=== PATIENT | female | born 1930 | race Caucasian/White ===

== ENCOUNTER 2017-05-13 16:46 | Emergency (ER) | payer MEDICARE, MEDICAID ==
[~2017-05-13] VITALS: Ht 157.5 cm; Wt 86.2 kg
[~2017-05-13 16:46] MED LIST: AMIODARONE HCL100 MG ORAL; CAPTOPRIL25 M1 PO; CELEBREX200 MG ORAL; CIPROFLOXACIN500 M2 ORAL; CRESTOR40 MG ORAL; CYMBALTA60 MG ORAL; LEVOTHYROXINE75 MCG ORAL; METROGEL55 GM TP; MICARDIS HCT 81 EAC1 ORAL; MICARDIS HCT 81 EACH ORAL; NAMENDA10 MG ORAL; NEXIUM40 MG ORAL; NKM; NORCO 5-325 TA1 EACH ORAL; OMEGA 3 1,0001 EACH PO; OYSTER SHELL 51 EAC1 PO; PATADAY2.5 ML OP; QUETIAPINE FUMA50 MG ORAL; TELMISARTAN80 MG PO; TOVIAZ8 MG PO; TRAMADOL HCL50 MG ORAL; VOLTAREN100 G1 TP; XARELTO10 MG ORAL; ZOLPIDEM TARTRAT5 MG ORAL
[2017-05-13 17:12] VITALS: BP 136/109
--- NOTE | 2017-05-13 17:15 | Emergency Room Report ---
History of Present Illness General Chief Complaint: Multiple Trauma/Fall Source: Patient Present Illness HPI Patient presents with complaints of fall and pain to the right wrist and the right upper rib cage area Patient reports that she had a fall about 11:00 in the afternoon Denies any head injury denies any loss of consciousness denies any vomiting Denies any abdominal pain Pain to the right wrist is 6/10 worse with touch and movement Pain to the right mid axillary area as well with touch Patient describes a mechanical fall denies any lightheadedness and states that she tripped Allergies: Coded Allergies: No Known Allergies (Unverified , 02/07/14) Patient History Past Medical History: see triage record Pertinent Family History: none Now: No Reviewed Nursing Documentation: PMH: Agreed, PSxH: Agreed Nursing Documentation-PMH Hx Cardiac Problems: Yes - CAD Hx Hypertension: Yes Hx Diabetes: No Hx Cancer: No Hx Gastrointestinal Problems: Yes - Constipation Hx Neurological Problems: No Review of Systems All Other Systems: negative except mentioned in HPI Physical Exam Vital Signs Date Time Temp Pulse Resp B/P (MAP) Pulse Ox O2 Delivery O2 Flow Rate FiO2 05/13/17 16:56 98.8 61 18 157/70 95 Room Air Sp02 EP Interpretation: reviewed, normal General Appearance: well appearing, no apparent distress Head: normocephalic, atraumatic Eyes: bilateral eye PERRL, bilateral eye EOMI ENT: hearing grossly normal, normal pharynx, TMs + canals normal, uvula midline Neck: full range of motion, supple, no meningismus, no bony tend Respiratory: lungs clear, normal breath sounds, no rhonchi, no respiratory distress, no retraction, no accessory muscle use Cardiovascular #1: normal peripheral pulses, regular rate, rhythm, no edema, no gallop, no JVD, no murmur Gastrointestinal: normal bowel sounds, non tender, soft, no mass, no organomegaly, non-distended, no guarding, no hernia, no pulsatile mass, no rebound Genitourinary: no CVA tenderness Musculoskeletal: other - Tender and mild swelling to the dorsal mid wrist mild ecchymosis is noted, patient is neurovascularly intact however, tender - Mid right axillary mild tenderness on palpation, no ecchymosis Neurologic: oriented x3, responsive, twister tender III-XII nml as tested, motor strength/ tone normal, sensory intact Psychiatric: mood/affect normal Skin: other - as noted above Lymphatic: normal inspection, no adenopathy Procedures Splinting Splinting : Consent: Verbal Location: right forearm Pre-Made Type: velcro Splint: volar Pre-Proc Neuro Vasc Exam: normal Post-Proc Neuro Vasc Exam: normal Patient Tolerated: Well Complications: None Medical Decision Making Diagnostic Impression: Primary Impression: Wrist fracture, right Additional Impression: Rib fractures ER Course Given the patient's history examined the presentation imaging studies were initiated Patient is appropriately oriented and denies any other symptoms such as lightheadedness or other pathology prior to the fall and reports a purely mechanical fall Patient remains hemodynamically stable and further blood work was not initiated Patient's wrist x-ray does show fractures as noted above CT chest also reveals several levels of fracture no obvious displacement Patient has no shortening signs of ecchymosis or bruising at this time, respirations are appropriate and not labored There is no signs of any flail chest And after further observation patient's appropriate for close outpatient followup I did contact the patient's son, spoke to his who is a registered nurse and she will have close outpatient followup for the patient Other X-Ray Diagnostic Results Other X-Ray Diagnostic Results : X-Ray ordered: right wrist # of Views/Limited Vs Complete: 3 View Indication: Pain EP Interpretation: Yes Interpretation: other - Distal impacted radial fracture, mild soft tissue swelling, ulnar fracture, no foreign body Impression: Other - Acute impacted distal radial, ulnar fracture Electronically Signed by: Vance Link DO CT/MRI/US Diagnostic Results CT/MRI/US Diagnostic Results : Impression CT chest: Right-sided nondisplaced rib 4-8 fracture. Refer to report for full finalized report Last Vital Signs Date Time Temp Pulse Resp B/P (MAP) Pulse Ox O2 Delivery O2 Flow Rate FiO2 05/13/17 16:56 98.8 61 18 157/70 95 Room Air Status: improved Disposition: HOME, SELF-CARE Condition: Improved Scripts Ibuprofen* (MOTRIN*) 600 Mg Tablet 600 MG ORAL Q8H Y for For Pain, #20 TAB 0 Refills Prov: VANCE LINK D.O. 05/13/17 Additional Instructions: Patient is provided with the discharge instructions notified to follow up with primary doctor in the next 2-3 days otherwise return to the er with any worsening symptoms. Please note that this report is being documented using DRAGON technology. This can lead to erroneous entry secondary to incorrect interpretation by the dictating instrument. VANCE LINK D.O. May 13, 2017 17:15
[2017-05-13 18:58] VITALS: BP 125/85
[2017-05-13] MEDS ORDERED: IBUPROFEN600 MG ORAL (18:59)
[2017-05-13 19:13] VITALS: BP 125/85
--- NOTE | 2017-05-14 09:53 | Diagnostic Imaging Report ---
Indication: Trauma with pain Technique: XRAY WRIST MIN 3V RIGHT Comparison: None. Findings: There is a comminuted fracture of the distal radius extending into the radiocarpal joint. Soft tissue swelling is present. The bones are osteopenic. Impression: Osteopenia. Comminuted fracture the distal radius with intra-articular extent.
--- NOTE | 2017-05-14 11:33 | Diagnostic Imaging Report ---
Indication: Trauma with chest pain Technique: CT scan of the chest was performed without intravenous contrast material. Continuous helical scanning was obtained with displayed 5 mm sections in axial and coronal planes. Dose: Total Dose Length Product - DLP [address] Dose Index - CTDIvol(s) 34.16 mGy. Comparison: 02/07/2014 Findings: Pacemaker wires are seen in the heart. There is a prosthetic aortic valve. The heart is normal in size. There is no mediastinal adenopathy or hilar adenopathy. A small linear density is noted in the right upper lobe laterally. There is dependent atelectasis in the right base. Some scarring is also noted in the right lower lobe laterally. Linear density is also noted in the lingula on the left. Fracture of the right third rib is noted. Views of the right fourth, fifth, sixth, seventh, and eighth ribs are noted ribs are noted. These appear incomplete. There are nondisplaced. The bones are osteopenic. Degenerative changes are noted in the thoracic spine. Impression: Intervening placement of prosthetic aortic valve. Intervening placement of pacemaker. Nondisplaced fractures of multiple right ribs. No pneumothorax. Scarring in the right lateral lung base. Atelectasis the right base. Atelectasis or scarring in the lingula. Scarring or atelectasis in the right upper lobe. The CT scanner at [facility] is accredited by the [employer] and the scans are performed using protocols designed to limit radiation exposure to as low as reasonably achievable to attain images of sufficient resolution adequate for diagnostic evaluation.
== END 2017-05-13 19:13 | disposition home or self-care (01) ==
LOC: EMR 17:05
DX: S52.571A Other intraarticular fracture of lower end of right radius, initial encounter for closed fracture (principal); S22.41XA Multiple fractures of ribs, right side, initial encounter for closed fracture; W19.XXXA Unspecified fall, initial encounter; Y92.89 Other specified places as the place of occurrence of the external cause; I10 Essential (primary) hypertension; I25.10 Atherosclerotic heart disease of native coronary artery without angina pectoris
CPT/HCPCS: 29125; 71250; 99284

== ENCOUNTER 2017-07-03 14:15 | Outpatient (RCR) | payer MEDICARE, MEDICAID ==
[~2017-07-03 14:15] MED LIST changes: +IBUPROFEN600 MG ORAL
== END 2017-07-04 | disposition home or self-care (01) ==
LOC: PTY 14:15
PROVIDERS: ATTEND Orthopaedic Surgery
DX: S62.101A Fracture of unspecified carpal bone, right wrist, initial encounter for closed fracture (principal)
CPT/HCPCS: 97140; 97162; G8984; G8985

== ENCOUNTER 2017-07-24 06:57 | Emergency (ER) | payer MEDICARE, MEDICAID ==
[~2017-07-24] VITALS: Ht 167.6 cm; Wt 99.8 kg
--- NOTE | 2017-07-24 07:24 | Emergency Room Report ---
History of Present Illness General Chief Complaint: Pain Source: Patient Present Illness HPI Patient is a 86-year-old female presented after a fall. Patient reportedly had fallen last night. The patient stated that she had pain to the right side of her chest as well as to her left wrist. injury occurred last night. The patient denies loss of consciousness. She denies any headache or neck pain. She denies any back pain. She reports having pain to the right side of her chest. Allergies: Coded Allergies: No Known Allergies (Unverified , 02/07/14) Patient History Past Medical History: see triage record Last Menstrual Period: none Now: No : 1 Para: 1 Reviewed Nursing Documentation: PMH: Agreed, PSxH: Agreed Nursing Documentation-PMH Hx Cardiac Problems: Yes - CAD Hx Hypertension: Yes Hx Diabetes: No Hx Cancer: No Hx Gastrointestinal Problems: Yes - Constipation Hx Neurological Problems: No Review of Systems All Other Systems: negative except mentioned in HPI Physical Exam Vital Signs Date Time Temp Pulse Resp B/P (MAP) Pulse Ox O2 Delivery O2 Flow Rate FiO2 07/24/17 07:07 98.1 60 15 182/85 96 Room Air General Appearance: well appearing, no apparent distress Head: normocephalic, atraumatic ENT: hearing grossly normal, normal voice Neck: full range of motion, supple Respiratory: chest non-tender, lungs clear, normal breath sounds, no respiratory distress, speaking full sentences Cardiovascular #1: normal peripheral pulses, no edema Gastrointestinal: non tender, soft, no mass, no organomegaly Musculoskeletal: normal inspection, back normal, no calf tenderness, swelling - swelling to left wrist Neurologic: alert, oriented x3, normal gait Psychiatric: mood/affect normal Skin: no rash Medical Decision Making Diagnostic Impression: Primary Impression: Contusion, chest wall ER Course patient presented for fall. Differential diagnosis included was not limited to neck fracture, CVA, close head injury, syncopal episode, basilar ischemia. Because of complexity of patient's case imaging studies were ordered.CT imaging of the chest read by radiologist showed no evidence of acute fracture. Patient was noted to have prior rib fractures which pretty partially healed. A left wrist x-ray 3 views interpreted by radiology showed normal bony alignment without any fracture and degenerative changes are presentThe patient is advised to follow up with primary care doctor in 1-2 days. Patient is advised to return if any worsening condition or if any changes in status that are concerning. Last Vital Signs Date Time Temp Pulse Resp B/P (MAP) Pulse Ox O2 Delivery O2 Flow Rate FiO2 07/24/17 07:07 98.1 60 15 182/85 96 Room Air Status: improved Disposition: HOME, SELF-CARE Condition: Stable Scripts Acetaminophen* (TYLENOL EXTRA STRENGTH*) 500 Mg Tablet 500 MG ORAL Q6H Y for Mild Pain/Temp > 100.5, #30 TAB 0 Refills Prov: Óscar Celestin 07/24/17 Óscar Celestin Jul 24, 2017 07:24
[2017-07-24] MEDS ORDERED: Acetaminophen 500mg (ES) tab ORAL ONE (07:30)
--- NOTE | 2017-07-24 08:38 | Diagnostic Imaging Report ---
Clinical Indication: PAIN STATUS post fall, pain to the right side of the chest Technique: Spiral acquisitions obtained through the chest. No IV contrast utilized, reason not stated. Multiplanar reconstructions generated. Total dose length product 1096 mGycm. CTDIvol(s) 27 mGy. Dose reduction achieved using automated exposure control Comparison: 05/13/2017 Findings:Lungs demonstrate some basilar atelectasis and/or scarring as well as the posterior dependent atelectatic changes. Some scarring is seen in the inferior lingula, unchanged. The lungs and pleural spaces are otherwise clear and unchanged. Multiple right rib fractures are again demonstrated, now demonstrating considerable callus formation. No new fractures are demonstrated. No evidence of significant soft tissue contusion. There are degenerative changes of the thoracic spine. Again demonstrated is a percutaneous aortic valve prosthesis. Again demonstrated are pacemaker wires. Normal heart size. No pericardial effusion. No mediastinal or hilar mass or adenopathy. No axillary or chest wall mass or adenopathy. 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 Bilateral renal cysts are again demonstrated. A hyperdense subcentimeter low-attenuation lesion in the upper pole is too small to characterize, likely a hyperdense cyst. There is an accessory splenule. Impression: Previously noted right rib fractures now demonstrated to be healing with callus formation. No acute bony trauma demonstrated. Pulmonary basilar and lingular atelectasis and scarring, unchanged from 05/13/2017. No acute pulmonary process Too small to characterize left upper pole renal lesion, likely a hyperdense proteinaceous cyst. No further followup necessary Other findings as noted, including degenerative spondylosis, aortic valve prosthesis, pacemaker, duodenal diverticulum, renal cysts, accessory splenule The CT scanner at [facility] is accredited by the [employer] and the scans are performed using protocols designed to limit radiation exposure to as low as reasonably achievable to attain images of sufficient resolution adequate for diagnostic evaluation.
--- NOTE | 2017-07-24 08:44 | Diagnostic Imaging Report ---
Clinical Indication:PAIN Technique: 3 views of the left wrist Comparison: None Findings: There is ulnar plus variance. No acute fractures. No dislocations. There is mild degenerative change of the first carpometacarpal joint. The remaining joint spaces are preserved. Impression: No acute process
[2017-07-24] MEDS ORDERED: TYLENOL EXTRA500 MG ORAL (09:03)
[2017-07-24 09:10] VITALS: BP 188/63
[2017-07-24 09:13] VITALS: BP 188/63
== END 2017-07-24 09:20 | disposition home or self-care (01) ==
LOC: EMR 07:22
DX: S20.211A Contusion of right front wall of thorax, initial encounter (principal); M25.532 Pain in left wrist; W19.XXXA Unspecified fall, initial encounter; Y92.009 Unspecified place in unspecified non-institutional (private) residence as the place of occurrence of the external cause; I25.10 Atherosclerotic heart disease of native coronary artery without angina pectoris; I10 Essential (primary) hypertension
CPT/HCPCS: 71250; 99283

== ENCOUNTER 2017-08-01 10:30 | Outpatient (RCR) | payer MEDICARE, MEDICAID ==
[~2017-08-01 10:30] MED LIST changes: +TYLENOL EXTRA500 MG ORAL
== END 2017-08-03 | disposition home or self-care (01) ==
LOC: PTY 10:30
PROVIDERS: ATTEND Orthopaedic Surgery
DX: M25.531 Pain in right wrist (principal)

== ENCOUNTER 2017-08-17 08:59 | Outpatient (RCR) | payer MEDICARE, MEDICAID | END 2017-09-03 | disposition home or self-care (01) | LOC: PTY 08:59 | PROVIDERS: ATTEND Orthopaedic Surgery | DX: M25.531 Pain in right wrist (principal) | CPT/HCPCS: 97110; 97140; G8984; G8985 ==

== ENCOUNTER 2017-11-14 15:05 | Inpatient (IN) | payer MEDICARE, OTHER ==
[~2017-11-14] VITALS: Ht 160 cm; Wt 95.3 kg
[2017-11-14] MEDS ORDERED: UNOBMED (15:17)
[2017-11-14 15:26] VITALS: BP 180/62
[2017-11-14] MEDS ORDERED: Sodium Chloride 500ML 500 ML IV ONE (15:32)
--- NOTE | 2017-11-14 16:15 | Diagnostic Imaging Report ---
Indication: Shortness of breath Technique: One view of the chest Comparison: 02/07/2014 Findings: There is a left chest bifocal pacemaker. There is generalized mild interstitial prominence, appearing similar to prior exam. Basilar atelectatic changes are seen bilaterally. The heart size is probably normal. Previously demonstrated left lower lobe infiltrate is no longer evident Impression: There is mild interstitial prominence, acuity indeterminate. Similar to previous exam, May represent chronic disease versus recurrent acute disease
[2017-11-14 16:18] LABS: BASOPHILS % (AUTO) 0.6 % (0.0-2.0); EOSINOPHILS % (AUTO) 2.7 % (0.0-3.0); HEMATOCRIT 40.1 % (37.0-47.0); HEMOGLOBIN 13.7 G/DL (12.0-16.0); LYMPHOCYTES % (AUTO) 19.4 % (20.0-45.0); MEAN CORPUSCULAR VOLUME 94 FL (80-99); MONOCYTES % (AUTO) 6.5 % (1.0-10.0); NEUTROPHILS % (AUTO) 70.8 % (45.0-75.0); PLATELET COUNT 214 K/UL (150-450); RED BLOOD COUNT 4.28 M/UL (4.20-5.40); RED CELL DISTRIBUTION WIDTH 12.4 % (11.6-14.8); WHITE BLOOD COUNT 8.6 K/UL (4.8-10.8)
--- NOTE | 2017-11-14 16:21 | Diagnostic Imaging Report ---
Indication: Syncope, status post fall Technique: spiral acquisitions obtained through the brain. Angled axial and coronal 5 x 5 mm slices were reconstructed. No IV contrast utilized. Radiation dose was minimized using automated exposure control Total dose length product 1432.39 mGycm. CTDIvol(s) 70.38 mGy Comparison: Reference made to brain MRI dated 02/19/2008 FINDINGS: No acute hemorrhage or edema. No mass effect or midline shift. There is age-related enlargement of the ventricles and extra axial CSF spaces. There is periventricular deep white matter ischemic change. Normal adkins-white differentiation. Visualized orbits are unremarkable. Visualized sinuses are unremarkable. Mastoids are clear. Intact calvarium. 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 Findings are similar to those demonstrated on prior brain MRI. Involutional changes has progressed somewhat. IMPRESSION: Chronic and age-related changes. Negative for acute intracranial bleed or mass effect The CT scanner at [facility] is accredited by the [employer] and the scans are performed using protocols designed to limit radiation exposure to as low as reasonably achievable to attain images of sufficient resolution adequate for diagnostic evaluation
[2017-11-14] MEDS ORDERED: Lidocaine 1% Plain 30 ml INJ ONE ×2 (16:35→17:00)
[2017-11-14 16:44] LABS: ANION GAP 6 mmol/L (5-15); BLOOD UREA NITROGEN 40 mg/dL (7-18); CALCIUM 9.7 MG/DL (8.5-10.1); CARBON DIOXIDE 32 MMOL/L (21-32); CHLORIDE 103 MMOL/L (98-107); CREATININE 1.5 MG/DL (0.55-1.30); POTASSIUM 3.3 MMOL/L (3.5-5.1); SODIUM 141 MMOL/L (136-145)
[2017-11-14 16:59] LABS: ALANINE AMINOTRANSFERASE 30 U/L (12-78); ALBUMIN 3.8 G/DL (3.4-5.0); ALBUMIN/GLOBULIN RATIO 1.1 (1.0-2.7); ALKALINE PHOSPHATASE 95 U/L (46-116); ASPARTATE AMINO TRANSFERASE 26 U/L (15-37); BILIRUBIN,TOTAL 0.6 MG/DL (0.2-1.0); CKMB 2.9 NG/ML (0.0-3.6); CREATINE KINASE 101 U/L (26-308)
[2017-11-14 17:30] VITALS: BP 180/70
[2017-11-14] MEDS ORDERED: Bacitracin Oint UD TOPIC ONE ×2 (17:32→18:30)
--- NOTE | 2017-11-14 18:55 | Emergency Room Report ---
History of Present Illness General Chief Complaint: Multiple Trauma/Fall Source: Patient Present Illness HPI 87-year-old female presents to ED for evaluation. Patient walked in status post head injury. States she tripped and fell at home today hitting her head. Denies LOC. Presents with laceration to her forehead. Patient denies syncope. Denies chest pain or shortness of breath. Patient states that she is on Xarelto. No other aggravating or relieving factors. Denies any other associated symptoms Allergies: Coded Allergies: No Known Allergies (Unverified , 02/07/14) Patient History Past Medical History: HTN, CAD Past Surgical History: none, pacemaker Pertinent Family History: none Social History: Denies: smoking, alcohol use, drug use Last Menstrual Period: Unk Now: No Immunizations: UTD Reviewed Nursing Documentation: PMH: Agreed, PSxH: Agreed Nursing Documentation-PMH Hx Cardiac Problems: Yes - CAD Hx Hypertension: Yes Hx Diabetes: No Hx Cancer: No Hx Gastrointestinal Problems: Yes - Constipation Hx Neurological Problems: No Review of Systems All Other Systems: negative except mentioned in HPI Physical Exam Vital Signs Date Time Temp Pulse Resp B/P (MAP) Pulse Ox O2 Delivery O2 Flow Rate FiO2 11/14/17 15:14 98.0 69 19 203/76 95 Room Air 98.1 Sp02 EP Interpretation: reviewed, normal General Appearance: no apparent distress, alert, GCS 15, non-toxic Head: normocephalic, other - 2 linear 4cm lacerations to forehead Eyes: bilateral eye normal inspection, bilateral eye PERRL ENT: hearing grossly normal, normal pharynx, no angioedema, normal voice Neck: full range of motion, supple/symm/no masses Respiratory: chest non-tender, lungs clear, normal breath sounds, speaking full sentences Cardiovascular #1: regular rate, rhythm, no edema Cardiovascular #2: 2+ carotid (R), 2+ carotid (L), 2+ radial (R), 2+ radial (L) , 2+ dorsalis pedis (R), 2+ dorsalis pedis (L) Gastrointestinal: normal bowel sounds, non tender, soft, non-distended, no guarding, no rebound Rectal: deferred Genitourinary: normal inspection, no CVA tenderness Musculoskeletal: back normal, gait/station normal, normal range of motion, non- tender Neurologic: alert, oriented x3, responsive, motor strength/tone normal, sensory intact, speech normal Psychiatric: judgement/insight normal, memory normal, mood/affect normal, no suicidal/homicidal ideation Reflexes: 3+ bicep (R), 3+ bicep (L), 3+ tricep (R), 3+ tricep (L), 3+ knee (R) , 3+ knee (L) Skin: normal color, no rash, warm/dry, well hydrated Lymphatic: no adenopathy Procedures Laceration/Wound Repair Laceration/Wound Repair : Consent: Verbal Wound Location: head Wound's Depth, Shape: linear Wound Explored: clean Betadine Prep?: Yes Anesthesia: 1% Lidocaine Wound Debrided: minimal Wound Repaired With: sutures Suture Size/Type: 6:0, proline Layer Closure?: No Sterile Dressing Applied?: Yes Splint Applied?: No Sling Applied?: No Patient Tolerated: Well Complications: None Medical Decision Making Diagnostic Impression: Primary Impression: Head injury Qualified Codes: S09.90XA - Unspecified injury of head, initial encounter Additional Impressions: Forehead laceration Qualified Codes: S01.81XA - Laceration without foreign body of other part of head, initial encounter Renal insufficiency ER Course Hospital Course 87-year-old female presents to ED with laceration to forehead status post fall and head injury. On Xarelto Differential diagnoses include: RI/unstable angina, arrythmia, dehydration, CVA/ TIA Clinical course Patient placed on stretcher. on athletic monitor. After initial history and physical I ordered labs, EKG, chest x-ray, IVFs, CT Brain labs reviewed- no leukocytosis, hemoglobin/hematocrit ok, BUN/Cr elevated, troponins negative EKG- paced rhythm, no acute ischemic changes interpreted by me Chest x-ray- pacemaker, bilateral congestion CT brain-unremarkable Blood pressure elevated in ED. Given hydralazine. Laceration to forehead. Laceration repaired with sutures Because patient is on Xarelto patient is at risk for delayed bleed. Recommend admission. Discussed findings with patient Case discussed with Dr. Ibrahim (per Dr Vasques) and he agreed to accept the patient to his service for further care and support I. I feel this is a highly complex case requiring extensive working including EKG/Rhythm strip, Xray/CT/US, Blood/urine lab work, repeat exams while in ED, and administration of strong opiates/narcotics for pain control, admission to hospital or close patient follow up. Diagnosis - head injury, forehead laceration, renal insufficiency admitted to telemetry in serious condition Labs Test 11/14/17 15:55 White Blood Count 8.6 K/UL (4.8-10.8) Red Blood Count 4.28 M/UL (4.20-5.40) Hemoglobin 13.7 G/DL (12.0-16.0) Hematocrit 40.1 % (37.0-47.0) Mean Corpuscular Volume 94 FL (80-99) Mean Corpuscular Hemoglobin 32.0 PG (27.0-31.0) Mean Corpuscular Hemoglobin Concent 34.3 G/DL (32.0-36.0) Red Cell Distribution Width 12.4 % (11.6-14.8) Platelet Count 214 K/UL (150-450) Mean Platelet Volume 9.1 FL (6.5-10.1) Neutrophils (%) (Auto) 70.8 % (45.0-75.0) Lymphocytes (%) (Auto) 19.4 % (20.0-45.0) Monocytes (%) (Auto) 6.5 % (1.0-10.0) Eosinophils (%) (Auto) 2.7 % (0.0-3.0) Basophils (%) (Auto) 0.6 % (0.0-2.0) Prothrombin Time 10.6 SEC (9.30-11.50) Prothromb Time International Ratio 1.0 (0.9-1.1) Activated Partial Thromboplast Time 27 SEC (23-33) Sodium Level 141 MMOL/L (136-145) Potassium Level 3.3 MMOL/L (3.5-5.1) Chloride Level 103 MMOL/L (98-107) Carbon Dioxide Level 32 MMOL/L (21-32) Anion Gap 6 mmol/L (5-15) Blood Urea Nitrogen 40 mg/dL (7-18) Creatinine 1.5 MG/DL (0.55-1.30) Estimat Glomerular Filtration Rate mL/min (>60) Glucose Level 127 MG/DL (74-106) Calcium Level 9.7 MG/DL (8.5-10.1) Total Bilirubin 0.6 MG/DL (0.2-1.0) Aspartate Amino Transf (AST/SGOT) 26 U/L (15-37) Alanine Aminotransferase (ALT/SGPT) 30 U/L (12-78) Alkaline Phosphatase 95 U/L (46-116) Total Creatine Kinase 101 U/L (26-308) Creatine Kinase MB 2.9 NG/ML (0.0-3.6) Creatine Kinase MB Relative Index 2.8 Troponin I 0.022 ng/mL (0.000-0.056) Pro-B-Type Natriuretic Peptide 172 pg/mL (0-125) Total Protein 7.2 G/DL (6.4-8.2) Albumin 3.8 G/DL (3.4-5.0) Globulin 3.4 g/dL Albumin/Globulin Ratio 1.1 (1.0-2.7) EKG Diagnostic Results Rate: normal Rhythm: other - paced ST Segments: no acute changes ASA given to the pt in ED: No Rhythm Strip Diag. Results EP Interpretation: yes Rhythm: no PVC's Chest X-Ray Diagnostic Results Chest X-Ray Diagnostic Results : Chest X-Ray Ordered: Yes # of Views/Limited/Complete: 1 View Indication: Shortness of Breath EP Interpretation: Yes Interpretation: no pneumothorax, other - pacemaker. bilateral congestion Impression: Other - chf Electronically Signed by: Electronically signed by Andre Troy MD CT/MRI/US Diagnostic Results CT/MRI/US Diagnostic Results : Imaging Test Ordered: CT head Impression no acute process Last Vital Signs Date Time Temp Pulse Resp B/P (MAP) Pulse Ox O2 Delivery O2 Flow Rate FiO2 11/14/17 18:30 197/70 11/14/17 17:30 98.4 69 20 97 Room Air 98.4 Status: improved Disposition: ADMITTED INPATIENT Condition: Serious Referrals: NON PHYSICIAN (PCP) ANDRE TROY M.D. Nov 14, 2017 18:55
[2017-11-14 19:00] VITALS: BP 153/69
[2017-11-14 20:00] VITALS: BP 144/75
[2017-11-15] VITALS: BP 135/65
[2017-11-15] MEDS ORDERED: Zolpidem 5mg tab ORAL PRN ×2 (01:30→14:00)
[2017-11-15 04:00] VITALS: BP 146/56
[2017-11-15] MEDS ORDERED: Milk of Magnesia 30ml Ud ORAL PRN ×2 (04:00→14:00)
[2017-11-15] MEDS: Captopril 25mg tab ORAL SCH ×5 (06:17→18:00)
[2017-11-15 08:00] VITALS: BP 176/76
[2017-11-15] MEDS ORDERED: Memantine 10mg tab ORAL SCH (09:00)
[2017-11-15] MEDS ORDERED: Ciprofloxacin 500mg tab ORAL SCH (09:00)
[2017-11-15] MEDS ORDERED: Amiodarone 200mg tab ORAL SCH (09:00)
[2017-11-15] MEDS ORDERED: DULoxetine 30mg cap ORAL SCH (09:00)
[2017-11-15] MEDS: Calcium Carbonate 500mg w/Vit D 200iu tab ORAL SCH ×3 (10:06→17:47)
[2017-11-15 10:19] LABS: BASOPHILS % (AUTO) 0.4 % (0.0-2.0); EOSINOPHILS % (AUTO) 0.9 % (0.0-3.0); HEMATOCRIT 40.9 % (37.0-47.0); LYMPHOCYTES % (AUTO) 14.5 % (20.0-45.0); MEAN CORPUSCULAR VOLUME 95 FL (80-99); MONOCYTES % (AUTO) 4.6 % (1.0-10.0); NEUTROPHILS % (AUTO) 79.6 % (45.0-75.0); PLATELET COUNT 210 K/UL (150-450); RED BLOOD COUNT 4.33 M/UL (4.20-5.40); RED CELL DISTRIBUTION WIDTH 12.5 % (11.6-14.8); WHITE BLOOD COUNT 9.9 K/UL (4.8-10.8)
[2017-11-15 12:00] VITALS: BP 136/61
[2017-11-15 16:00] VITALS: BP 146/65
[2017-11-15] MEDS ORDERED: Xarelto 15mg tab ORAL SCH (16:30)
--- NOTE | 2017-11-15 17:45 | History and Physical Report ---
DATE OF ADMISSION: 11/14/2017 REASON FOR ADMISSION: Head injury. HISTORY: This 87-year-old female presented through the emergency room. The patient is status post head injury. The patient apparently tripped and fell at home, hitting her head. The patient had a laceration to her forehead. She denies any syncopal episodes. Denies chest pain. The patient is on Xarelto. Currently comfortable, no significant distress. No loss of consciousness. The patient is seen and evaluated in the emergency room. She did undergo a head CT, showing chronic age-related changes. No acute intracranial bleeding. The patient now being admitted for observation. PAST MEDICAL HISTORY: Hypertension, CAD, dysrhythmias, and pacemaker. MEDICATIONS: Reviewed. ALLERGIES: Reviewed. REVIEW OF SYSTEMS: Notable for constipation, advanced age, and memory loss. PHYSICAL EXAMINATION: GENERAL: A well-developed female, comfortable at present. The patient is of advanced age. No significant distress. VITAL SIGNS: Blood pressure is 146/56, pulse 61, respirations 17, saturations 95% on room air, and temperature 97.5. HEENT: Negative. Scalp laceration noted. NECK: Supple. No lymphadenopathy. LUNGS: Clear overall. CARDIAC: S1 and S2. Regular rate and rhythm without murmurs, rubs, or gallops. ABDOMEN: Soft, nontender, and nondistended. EXTREMITIES: No cyanosis or clubbing. There is mild edema. NEUROLOGIC: Grossly nonfocal. Alert and oriented x3. LABORATORY AND DIAGNOSTIC DATA: Lab data reviewed. CBC within normal. Chemistry is fairly normal. BUN 40, creatinine 1.5, and potassium 3.3. CT as described above. Chest x-ray as described with some interstitial prominence. IMPRESSION: 1. Status post non-syncopal fall. 2. Hypertension. 3. Likely chronic renal insufficiency. 4. History of coronary artery disease. 5. 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 6. History of hypothyroidism. RECOMMENDATIONS: Supportive care. Physical therapy. Monitor for stability. Resume medication. Monitor for bleeding. Monitor for change in mental status, and we will discharge when stable and disposition is safe. Damir Ibrahim M.D. DR: CRISS JOB#: [id number] CC:
[2017-11-15] MEDS: Memantine 10mg tab ORAL SCH (17:48)
[2017-11-15] MEDS: Xarelto 15mg tab ORAL SCH (17:48)
[2017-11-15 19:23] VITALS: BP 158/68
[2017-11-15] MEDS: Ciprofloxacin 500mg tab ORAL SCH (21:27)
[2017-11-15] MEDS: Amiodarone 200mg tab ORAL SCH (21:27)
--- NOTE | 2017-11-15 23:56 | Consultation ---
History of Present Illness General Chief Complaint: Multiple Trauma/Fall Present Illness HPI 87-year-old female presented through the emergency room. The patient is status post head injury, she tripped and fell at home, hitting her head. the pt was anxious during the eval and stated that she has not been sleeping last night due to lack of seroquel / the pt denied si/hi. the pt has poor insight reluctant to change meds Allergies: Coded Allergies: No Known Allergies (Unverified , 02/07/14) Medication History Scheduled Amiodarone Hcl (Amiodarone Hcl), 200 MG ORAL TWICE A DAY, (Reported) Calcium Carbonate/Vitamin D3 (Oyster Shell 500 Mg + Vit D Tb), 1 EACH PO BID, ( Reported) Captopril (Captopril), 25 MG PO QID, (Reported) Celecoxib* (Celebrex*), 200 MG ORAL DAILY, (Reported) Ciprofloxacin Hcl* (Ciprofloxacin Hcl*), 500 MG ORAL Q12H Ciprofloxacin Hcl* (Ciprofloxacin Hcl*), 500 MG ORAL EVERY 12 HOURS Duloxetine Hcl* (Cymbalta*), 60 MG ORAL DAILY, (Reported) Esomeprazole Magnesium (Nexium), 40 MG ORAL DAILY, (Reported) Fesoterodine Fumarate (Toviaz), 8 MG PO DAILY, (Reported) Levothyroxine Sodium* (Levothyroxine Sodium*), 75 MCG ORAL DAILY, (Reported) Memantine Hcl* (Namenda*), 10 MG ORAL TWICE A DAY, (Reported) Olopatadine Hcl (Pataday), 0.2 % OP DAILY, (Reported) [place]-3 Fatty Acids/Fish Oil ([place] 3 1,000 Mg Softgel), 2 EACH PO DAILY, ( Reported) Quetiapine Fumarate* (Quetiapine Fumarate*), 50 MG ORAL BEDTIME, (Reported) Rivaroxaban (Xarelto*), 20 MG ORAL DAILY, (Reported) Rosuvastatin Calcium* (Crestor*), 40 MG ORAL DAILY, (Reported) Telmisartan/Hydrochlorothiazid (Micardis Hct 80-25 Mg Tablet), 1 TAB ORAL DAILY, (Reported) Scheduled PRN Acetaminophen* (Tylenol Extra Strength*), 500 MG ORAL Q6H PRN for Mild Pain/ Temp > 100.5 Ibuprofen* (Motrin*), 600 MG ORAL Q8H PRN for For Pain Tramadol Hcl* (Ultram*), 50 MG ORAL BID PRN for For Pain, (Reported) Miscellaneous Medications Unable to Obtain Medications (Unable To Obtain Meds), (Reported) Patient History Limited by: medical condition History Provided By: Patient, Medical Record, PMD Healthcare decision maker N Resuscitation status Full Code Advanced Directive on File No Review of Systems Psychiatric: Reports: prior hx, anxiety, depressed feelings, emotional problems Physical Exam General Appearance: no apparent distress Neurologic: alert, oriented x 3, responsive, depressed affect Last 24 Hour Vital Signs Date Time Temp Pulse Resp B/P (MAP) Pulse Ox O2 Delivery O2 Flow Rate FiO2 11/15/17 19:23 97.3 63 18 158/68 93 Room Air 97.3 61 11/15/17 18:00 146/65 11/15/17 16:00 97.7 68 18 146/65 93 97.7 11/15/17 13:05 136/61 11/15/17 12:00 97.9 61 19 136/61 95 Room Air 97.9 11/15/17 08:00 97.5 61 19 176/76 95 Room Air 97.5 11/15/17 06:17 146/56 11/15/17 04:00 98.0 70 20 146/56 94 Room Air 98.0 11/15/17 04:00 64 11/15/17 00:00 98.4 66 20 135/65 95 Room Air 98.4 11/15/17 00:00 69 Intake and Output 11/14/17 11/15/17 19:00 07:00 Intake Total 500 ml 100 ml Output Total 200 ml Balance 500 ml -100 ml IV Total 500 ml 100 ml Output Stool Total 200 ml Laboratory Tests Test 11/15/17 10:00 White Blood Count 9.9 K/UL (4.8-10.8) Red Blood Count 4.33 M/UL (4.20-5.40) Hemoglobin 14.0 G/DL (12.0-16.0) Hematocrit 40.9 % (37.0-47.0) Mean Corpuscular Volume 95 FL (80-99) Mean Corpuscular Hemoglobin 32.3 PG (27.0-31.0) H Mean Corpuscular Hemoglobin Concent 34.2 G/DL (32.0-36.0) Red Cell Distribution Width 12.5 % (11.6-14.8) Platelet Count 210 K/UL (150-450) Mean Platelet Volume 8.4 FL (6.5-10.1) Neutrophils (%) (Auto) 79.6 % (45.0-75.0) H Lymphocytes (%) (Auto) 14.5 % (20.0-45.0) L Monocytes (%) (Auto) 4.6 % (1.0-10.0) Eosinophils (%) (Auto) 0.9 % (0.0-3.0) Basophils (%) (Auto) 0.4 % (0.0-2.0) Pro-B-Type Natriuretic Peptide 336 pg/mL (0-125) H Height (Feet): 5 Height (Inches): 3.00 Weight (Pounds): 210 Medications Current Medications Medications (Trade) Dose Ordered Sig/Brigitte Route PRN Reason Start Time Stop Time Status Last Admin Dose Admin Acetaminophen (Tylenol) 650 mg Q4H PRN ORAL Mild Pain/Temp > 100.5 11/15/17 14:00 12/15/17 13:59 Al Hydroxide/Mg Hydroxide (Mylanta) 30 ml Q4H PRN ORAL INDIGESTION 11/15/17 14:00 12/15/17 13:59 Amiodarone HCl (Cordarone) 200 mg EVERY 12 HOURS ORAL 11/15/17 21:00 12/15/17 08:59 11/15/17 21:27 Calcium Carbonate (OsCal D) 1 tab THREE TIMES A DAY ORAL 11/15/17 18:00 12/15/17 08:59 11/15/17 17:47 Captopril (Capoten) 25 mg EVERY 6 HOURS ORAL 11/15/17 18:00 12/15/17 05:59 Ciprofloxacin (Cipro 500mg tab) 500 mg EVERY 12 HOURS ORAL 11/15/17 21:00 11/22/17 08:59 11/15/17 21:27 Duloxetine HCl (Cymbalta) 60 mg DAILY ORAL 11/16/17 09:00 12/15/17 08:59 Levothyroxine Sodium (Synthroid) 75 mcg ACBREAKFAST ORAL 11/16/17 06:30 12/16/17 06:29 Magnesium Hydroxide (Mom) 30 ml DAILYPRN PRN ORAL Constipation 11/15/17 14:00 12/15/17 13:59 Meloxicam (Mobic) 7.5 mg DAILY ORAL 11/16/17 09:00 12/15/17 08:59 Memantine (Namenda) 10 mg BID ORAL 11/15/17 18:00 12/15/17 08:59 11/15/17 17:48 Pantoprazole (Protonix) 40 mg DAILY ORAL 11/16/17 09:00 12/15/17 08:59 Quetiapine Fumarate (SEROquel) 50 mg BEDTIME ORAL 11/15/17 21:00 12/15/17 20:59 11/15/17 21:26 Rivaroxaban (Xarelto) 15 mg QPM ORAL 11/15/17 16:30 12/15/17 16:29 11/15/17 17:48 Sodium Chloride 1,000 ml @ 100 mls/hr Q10H IV 11/15/17 14:00 12/15/17 13:59 Zolpidem Tartrate (Ambien) 5 mg HSPRN PRN ORAL Insomnia 11/15/17 14:00 11/22/17 13:59 Assessment/Plan Assessment/Plan mdd ? encephalopathy? cont Cymbalta cont Fredis Law M.D. Nov 15, 2017 23:56
[2017-11-16 00:04] VITALS: BP 139/76
[2017-11-16] MEDS: Captopril 25mg tab ORAL SCH ×4 (00:55→19:29)
[2017-11-16 03:10] VITALS: BP 131/62
--- NOTE | 2017-11-16 07:59 | General Progress Note ---
Assessment/Plan Assessment/Plan IMPRESSION: 1. Status post non-syncopal fall. 2. Hypertension. 3. Likely chronic renal insufficiency. 4. History of coronary artery disease. 5. 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 6. History of hypothyroidism. 7. facial bruising PLAN off Xarelto PT dc in am home health on dc will go home with son impression, plan, and exam edited and reviewed in detail care discussed with RN Subjective Allergies: Coded Allergies: No Known Allergies (Unverified , 02/07/14) Subjective still unsteady would like to go home and does not want rehab Objective Last 24 Hour Vital Signs Date Time Temp Pulse Resp B/P (MAP) Pulse Ox O2 Delivery O2 Flow Rate FiO2 11/16/17 06:02 131/62 11/16/17 04:52 61 11/16/17 04:19 Room Air 11/16/17 03:10 98.2 54 20 131/62 93 Room Air 98.2 52 11/16/17 00:55 139/76 11/16/17 00:04 96.8 70 20 139/76 90 Room Air 96.8 70 11/15/17 19:23 97.3 63 18 158/68 93 Room Air 97.3 61 11/15/17 18:00 146/65 11/15/17 16:00 97.7 68 18 146/65 93 97.7 11/15/17 13:05 136/61 11/15/17 12:00 97.9 61 19 136/61 95 Room Air 97.9 11/15/17 08:00 97.5 61 19 176/76 95 Room Air 97.5 Intake and Output 11/15/17 11/16/17 19:00 07:00 Intake Total 360 ml 100 ml Balance 360 ml 100 ml Intake Oral 360 ml IV Total 100 ml # Voids 3 3 Laboratory Tests 11/15/17 10:00: White Blood Count 9.9, Red Blood Count 4.33, Hemoglobin 14.0, Hematocrit 40.9, Mean Corpuscular Volume 95, Mean Corpuscular Hemoglobin 32.3H, Mean Corpuscular Hemoglobin Concent 34.2, Red Cell Distribution Width 12.5, Platelet Count 210, Mean Platelet Volume 8.4, Neutrophils (%) (Auto) 79.6H, Lymphocytes (%) (Auto) 14.5L, Monocytes (%) (Auto) 4.6, Eosinophils (%) (Auto) 0.9, Basophils (%) (Auto ) 0.4, Pro-B-Type Natriuretic Peptide 336H Height (Feet): 5 Height (Inches): 3.00 Weight (Pounds): 210 Objective GENERAL: A well-developed female, comfortable at present. The patient is of advanced age. bruising face HEENT: Negative. Scalp laceration noted. NECK: Supple. No lymphadenopathy. LUNGS: Clear overall. CARDIAC: S1 and S2. Regular rate and rhythm without murmurs, rubs, or gallops. ABDOMEN: Soft, nontender, and nondistended. EXTREMITIES: No cyanosis or clubbing. There is mild edema. NEUROLOGIC: Grossly nonfocal. Alert and oriented x3. VERNA MACDONALD Nov 16, 2017 07:59
[2017-11-16 08:00] VITALS: BP 126/59
[2017-11-16] MEDS: Calcium Carbonate 500mg w/Vit D 200iu tab ORAL SCH ×3 (10:04→19:30)
[2017-11-16] MEDS: Ciprofloxacin 500mg tab ORAL SCH ×2 (10:07→21:22)
[2017-11-16] MEDS: Amiodarone 200mg tab ORAL SCH ×2 (10:07→21:22)
[2017-11-16] MEDS: DULoxetine 30mg cap ORAL SCH (10:07)
[2017-11-16] MEDS: Memantine 10mg tab ORAL SCH ×2 (10:08→19:29)
[2017-11-16 12:18] VITALS: BP 124/52
[2017-11-16 15:57] VITALS: BP 152/71
[2017-11-16] MEDS: Xarelto 15mg tab ORAL SCH (17:13)
--- NOTE | 2017-11-16 17:21 | General Progress Note ---
Assessment/Plan Status: stable Subjective Date patient seen: Nov 16, 2017 Neurologic/Psychiatric: Reports: anxiety, depressed, emotional problems Allergies: Coded Allergies: No Known Allergies (Unverified , 02/07/14) Objective Last 24 Hour Vital Signs Date Time Temp Pulse Resp B/P (MAP) Pulse Ox O2 Delivery O2 Flow Rate FiO2 11/16/17 15:57 98.1 60 19 152/71 94 Room Air 98.1 11/16/17 12:37 124/52 11/16/17 12:18 97.9 60 18 124/52 95 Room Air 97.9 11/16/17 09:39 97.5 60 18 90 Room Air 97.5 11/16/17 08:00 97.5 60 18 126/59 90 Room Air 97.5 11/16/17 08:00 97.5 60 20 126/59 95 Room Air 97.5 11/16/17 06:02 131/62 11/16/17 04:52 61 11/16/17 04:19 Room Air 11/16/17 03:10 98.2 54 20 131/62 93 Room Air 98.2 52 11/16/17 00:55 139/76 11/16/17 00:04 96.8 70 20 139/76 90 Room Air 96.8 70 11/15/17 19:23 97.3 63 18 158/68 93 Room Air 97.3 61 11/15/17 18:00 146/65 Intake and Output 11/15/17 11/16/17 19:00 07:00 Intake Total 360 ml 100 ml Balance 360 ml 100 ml Intake Oral 360 ml IV Total 100 ml # Voids 3 3 Height (Feet): 5 Height (Inches): 3.00 Weight (Pounds): 210 General Appearance: no apparent distress, alert Fredis Hatch M.D. Nov 16, 2017 17:21
[2017-11-16 19:32] VITALS: BP 145/52
[2017-11-17 00:25] VITALS: BP 138/71
[2017-11-17] MEDS: Captopril 25mg tab ORAL SCH ×3 (00:52→12:00)
[2017-11-17 04:05] VITALS: BP 153/68
[2017-11-17 08:08] VITALS: BP 169/77
--- NOTE | 2017-11-17 08:42 | General Progress Note ---
Assessment/Plan Assessment/Plan IMPRESSION: 1. Status post non-syncopal fall. 2. Hypertension. 3. Likely chronic renal insufficiency. 4. History of coronary artery disease. 5. 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 6. History of hypothyroidism. 7. facial bruising PLAN off Xarelto for now as at risk for fall PT dc today home health on dc will go home with son impression, plan, and exam edited and reviewed in detail care discussed with RN Subjective Allergies: Coded Allergies: No Known Allergies (Unverified , 02/07/14) Subjective still unsteady would like to go home today and does not want rehab after repeat questioning Objective Last 24 Hour Vital Signs Date Time Temp Pulse Resp B/P (MAP) Pulse Ox O2 Delivery O2 Flow Rate FiO2 11/17/17 08:08 97.6 63 19 169/77 93 97.6 11/17/17 06:39 153/68 11/17/17 04:05 97.5 61 20 153/68 92 Room Air 97.5 61 11/17/17 00:52 138/71 11/17/17 00:25 97.3 61 20 138/71 90 Room Air 97.3 63 11/16/17 19:32 60 145/52 11/16/17 19:29 145/52 11/16/17 15:57 98.1 60 19 152/71 94 Room Air 98.1 11/16/17 12:37 124/52 11/16/17 12:18 97.9 60 18 124/52 95 Room Air 97.9 11/16/17 09:39 97.5 60 18 90 Room Air 97.5 Intake and Output 11/16/17 11/17/17 19:00 07:00 Intake Total 1380 ml 1640 ml Balance 1380 ml 1640 ml Intake Oral 480 ml 540 ml IV Total 900 ml 1100 ml # Voids 1 2 Height (Feet): 5 Height (Inches): 3.00 Weight (Pounds): 210 Objective GENERAL: A well-developed female, NAD bruising face HEENT: Negative. Scalp laceration noted. NECK: Supple. No lymphadenopathy. LUNGS: Clear overall. no rhonchi or wheeze CARDIAC: S1 and S2. Regular rate and rhythm without murmurs, rubs, or gallops. ABDOMEN: Soft, nontender, and nondistended. EXTREMITIES: No cyanosis or clubbing. There is mild edema. NEUROLOGIC: Grossly nonfocal. Alert and oriented x3. VERNA MACDONALD Nov 17, 2017 08:42
[2017-11-17] MEDS: Amiodarone 200mg tab ORAL SCH (09:04)
[2017-11-17] MEDS: Calcium Carbonate 500mg w/Vit D 200iu tab ORAL SCH (09:04)
[2017-11-17] MEDS: Ciprofloxacin 500mg tab ORAL SCH (09:05)
[2017-11-17] MEDS: DULoxetine 30mg cap ORAL SCH (09:05)
[2017-11-17] MEDS: Memantine 10mg tab ORAL SCH (09:05)
[2017-11-17 10:00] VITALS: BP 158/80
--- NOTE | 2017-11-17 11:20 | Wound Care Consultation ---
Wound Assessment Wound Assessment : Wound Number: 1 Wound Present on Admission: Yes New Wound: No Status Change of Wound: No Wound Location Body Site: other - forehead Wound Type: incision Gita Test: Does not Gita Wound Length: 5.0 Percent of Wound [place]/Red: 100 Wound Drainage Amount: None Wound Drainage Odor: None/Absent Tissue Surrounding Wound: Intact Wound General Appearance: Reddened, Sutures Intact Wound Comment Recommendation -Keep clean and dry -Local wound care per MD's order -Assess and f/u for any changes with LATOYA SESAY RN Nov 17, 2017 11:20
[2017-11-17 11:30] VITALS: BP 146/71
--- NOTE | 2017-11-17 21:15 | General Progress Note ---
Assessment/Plan Status: stable, progressing Subjective Date patient seen: Nov 17, 2017 Neurologic/Psychiatric: Reports: anxiety, depressed, emotional problems Allergies: Coded Allergies: No Known Allergies (Unverified , 02/07/14) Objective Last 24 Hour Vital Signs Date Time Temp Pulse Resp B/P (MAP) Pulse Ox O2 Delivery O2 Flow Rate FiO2 11/17/17 11:30 98.5 62 20 146/71 96 98.5 11/17/17 10:00 158/80 11/17/17 08:08 97.6 63 19 169/77 93 97.6 11/17/17 06:39 153/68 11/17/17 04:05 97.5 61 20 153/68 92 Room Air 97.5 61 11/17/17 00:52 138/71 11/17/17 00:25 97.3 61 20 138/71 90 Room Air 97.3 63 Intake and Output 11/16/17 11/17/17 19:00 07:00 Intake Total 1380 ml 1640 ml Balance 1380 ml 1640 ml Intake Oral 480 ml 540 ml IV Total 900 ml 1100 ml # Voids 1 2 Height (Feet): 5 Height (Inches): 3.00 Weight (Pounds): 210 General Appearance: no apparent distress, alert, confused, agitated Fredis Hatch M.D. Nov 17, 2017 21:15
--- NOTE | 2017-11-20 08:15 | Discharge Summary ---
Discharge Summary Hospital Course Date of Admission Nov 14, 2017 at 16:05 Date of Discharge Nov 17, 2017 at 12:31 Admitting Diagnosis HEAD INJURY ON [facility] Emy Conti is a 87 year old female who was admitted on Nov 14, 2017 at 16: 05 for Head Injury On [facility] Hospital Course dc summary #[id number] Discharge Medications Continued Medications: Acetaminophen* (Tylenol Extra Strength*) 500 Mg Tablet 500 MG ORAL Q6H PRN for Mild Pain/Temp > 100.5, #30 TAB 0 Refills Amiodarone Hcl (Amiodarone Hcl) 100 Mg Tablet 200 MG ORAL TWICE A DAY, TAB Calcium Carbonate/Vitamin D3 (Oyster Shell 500 Mg + Vit D Tb) 1 Each Tablet 1 EACH PO BID, TAB Captopril (Captopril) 25 Mg Tablet 25 MG PO QID for For High Blood Pressure, TAB Celecoxib* (Celebrex*) 200 Mg Capsule 200 MG ORAL DAILY, CAP Ciprofloxacin Hcl* (Ciprofloxacin Hcl*) 500 Mg Tablet 500 MG ORAL Q12H, #14 TAB Ciprofloxacin Hcl* (Ciprofloxacin Hcl*) 500 Mg Tab 500 MG ORAL EVERY 12 HOURS, #10 TAB Duloxetine Hcl* (Cymbalta*) 60 Mg Capsule.dr 60 MG ORAL DAILY, CAP Esomeprazole Magnesium (Nexium) 40 Mg Capsule.dr 40 MG ORAL DAILY, CAP Fesoterodine Fumarate (Toviaz) 8 Mg Tab.er.24h 8 MG PO DAILY, TAB Ibuprofen* (Motrin*) 600 Mg Tablet 600 MG ORAL Q8H PRN for For Pain, #20 TAB 0 Refills Levothyroxine Sodium* (Levothyroxine Sodium*) 75 Mcg Tablet 75 MCG ORAL DAILY, TAB Take in the morning on an empty stomach, at least 30 minutes before food. Memantine Hcl* (Namenda*) 10 Mg Tablet 10 MG ORAL TWICE A DAY, TAB Olopatadine Hcl (Pataday) 2.5 Ml Drops 0.2 % OP DAILY, ML [place]-3 Fatty Acids/Fish Oil ([place] 3 1,000 Mg Softgel) 1 Each Capsule 2 EACH PO DAILY, CAP Quetiapine Fumarate* (Quetiapine Fumarate*) 50 Mg Tablet 50 MG ORAL BEDTIME, #2 TAB Rosuvastatin Calcium* (Crestor*) 40 Mg Tablet 40 MG ORAL DAILY, TAB Telmisartan/Hydrochlorothiazid (Micardis Hct 80-25 Mg Tablet) 1 Each Tablet 1 TAB ORAL DAILY, TAB Tramadol Hcl* (Ultram*) 50 Mg Tablet 50 MG ORAL BID PRN for For Pain, #30 TAB 0 Refills Discharge Discharge Disposition Patient was discharged to Home with Home Health(06) Discharge Diagnoses: Discharge Instructions Discharge Instructions Special Instructions I have been assigned to complete a D/C Summary on this account. I was not involved in the patient management Madhavi Hardin NP ([place]te[place]) Nov 20, 2017 08:15
--- NOTE | 2017-11-20 21:15 | Discharge Summary 2 SIG ---
DATE OF ADMISSION: 11/14/2017 DATE OF DISCHARGE: 11/17/2017 REASON FOR ADMISSION: 87-year-old female with history of hypertension, coronary artery disease, and pacemaker, tripped and fell at home. She denied loss of consciousness, blackout, dizziness, chest pain, or shortness of breath. She hit her head and had forehead laceration when presented to emergency department and subsequently undergone repair of laceration. The patient was on anticoagulation with Xarelto. CT of the head revealed no acute intracranial pathology. Chest x-ray revealed mild interstitial prominence, no change compared to previous imaging. EKG shows paced rhythm. No acute changes. Blood pressure was elevated. Subsequently, the patient received IV hydralazine. Noted BUN- 40 and creatinine -1.5. Troponin was negative. Pro BNP -172. The was patient admitted for further management with diagnoses of status post non syncopal fall, hypertension, likely chronic renal insufficiency, history of coronary artery disease, history of hypothyroidism, history of depression, and possible psychosis. HOSPITAL COURSE: The patient admitted. Home medication were resumed. Fall precautions were maintained. The patient started to work with physical therapist. Xarelto was on hold. Blood pressure stabilized; prior to discharge - 146/71. GI prophylaxis provided. Psychiatric evaluation was requested for depression and possible psychosis. Per psychiatrist, the patient had a major depressive disorder as well as possible encephalopathy. She recommended to continue Cymbalta and Seroquel. Wound care nurse seen the patient for forehead laceration repair, recommended local wound care and keep it clean and dry. The patient was stable for discharge home with home health services for physical therapy. FINAL DIAGNOSES: 1. Status post non syncopal fall. 2. Hypertension 3. Likely chronic renal insufficiency. 4. Forehead laceration, status post repair. 5. History of coronary artery disease. 6. Major depressive disorder. 7. Possible encephalopathy. 8. History of hypothyroidism. DISCHARGE MEDICATIONS: See medication reconciliation list. DISCHARGE INSTRUCTIONS: The patient discharged home with home health services. Follow up with primary care provider in one week. Damir Ibrahim M.D. I have been assigned to dictate discharge summary on this account and I was not involved in the patient's management. Madhavi SaulVince schwartz DR: Parisa JOB#: [id number] CC: [id number]
== END 2017-11-17 12:31 | disposition home or self-care (01) | DRG 604 ==
LOC: EMR 15:48 → 2E 16:05 → EDBEDREQ 16:37 → 4W 11-15 13:07
PROC: 0HQ1XZZ Repair Face Skin, External Approach (ICD-10-PCS; principal; 2017-11-14)
DX: S01.81XA Laceration without foreign body of other part of head, initial encounter (principal); G93.40 Encephalopathy, unspecified; W01.0XXA Fall on same level from slipping, tripping and stumbling without subsequent striking against object, initial encounter; Y92.009 Unspecified place in unspecified non-institutional (private) residence as the place of occurrence of the external cause; I12.9 Hypertensive chronic kidney disease with stage 1 through stage 4 chronic kidney disease, or unspecified chronic kidney disease; N18.9 Chronic kidney disease, unspecified; I25.10 Atherosclerotic heart disease of native coronary artery without angina pectoris; Z95.0 Presence of cardiac pacemaker; E03.9 Hypothyroidism, unspecified; Z79.01 Long term (current) use of anticoagulants; F32.9 Major depressive disorder, single episode, unspecified
CPT/HCPCS: 36415; 70450; 71045; 80053; 82550; 82553; 83880; 84484; 85025; 85610; 85730; 86850; 86900; 86901; 93005; 99285; J8499